=== PATIENT | male | born 1970 | race Caucasian/White ===

== ENCOUNTER 2017-02-05 09:49 | Outpatient (CLI) | payer OTHER ==
--- NOTE | 2017-02-05 13:25 | MRI Report ---
EXAM: RIGHT KNEE MRI WITHOUT CONTRAST EXAM DATE: 02/05/2017 10:01 AM. CLINICAL HISTORY: Pain in right knee. COMPARISON: None. TECHNIQUE: Multiplanar, multisequence T1-weighted and fluid-sensitive sequences of the knee without c ontrast. Other: None. FINDINGS: Bones and articular cartilage: Small bone islands at the tibial plateau and lateral femoral condyle. No acute fracture. Normal marrow signal. Grade 1-2 chondromalacia at the medial femoral condyle. Mult iple small partial-thickness fissures within articular cartilage at the median ridge and medial facet of the patella.. Medial Meniscus: Degenerative signal within the posterior horn. Focal fraying or tiny tear at the inf erior articular surface of the posterior horn (coronal image 18 and sagittal image 4). Lateral Meniscus: The lateral meniscus is intact. Cruciate Ligaments: The anterior and posterior cruciate ligaments are intact. Collateral Ligaments: The medial collateral and lateral collateral ligamentous structures are intact. Tendons: The quadriceps, patellar, semimembranosus, and popliteus tendons are unremarkable. Musculature: No edema or fatty atrophy. Other: No effusion. No popliteal cyst. No loose bodies. The medial and lateral retinacula are intact . The subcutaneous tissues and fat pads are unremarkable. IMPRESSION: 1. 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 Multiple small partial-thickness fissures within the articular cartilage at the median ridge and medial facet of patella. 2. Degenerative intrasubstance signal within the posterior horn medial meniscus. Focal fraying or a t iny tear at the inferior articular surface of the posterior horn medial meniscus. [facility] MUSCULOSKELETAL RADIOLOGY SECTION Referring Provider Line: [phone] SITE ID: [id number]
== END 2017-02-05 09:50 | disposition home or self-care (01) ==
LOC: DI 09:49
DX: M94.261 Chondromalacia, right knee (principal); M23.321 Other meniscus derangements, posterior horn of medial meniscus, right knee

== ENCOUNTER 2019-04-20 09:15 | Outpatient (CLI) | payer OTHER ==
--- NOTE | 2019-04-20 16:47 | MRI Report ---
Reason: LT ANKLE PAIN, SWELLING Procedure Date: 04/20/2019 Accession Number: [id number] / [id number] Procedure: MRI - Ankle LT W/O CPT Code: FULL RESULT: EXAM: LEFT ANKLE/HINDFOOT MRI WITHOUT CONTRAST. EXAM DATE: 04/20/2019 09:35 AM. CLINICAL HISTORY: Left ankle pain, swelling. COMPARISON: LEFT ANKLE 10/18/2006 2:00 PM images and report from 10/18/2006. TECHNIQUE: Multiplanar, multisequence T1-weighted and fluid-sensitive sequences of the ankle/hindfoot without contrast. Other: None. FINDINGS: Bones: No fractures or subluxations. No marrow edema. No bone lesions. Articular Cartilage: Unremarkable. Ligaments: The anterior and posterior tibiofibular, anterior and posterior talofibular, and calcaneofibular ligaments are intact. The deep and superficial deltoid and spring ligaments are intact. Anterior Tendons: A focal area of concern corresponds to a ganglion cyst which is surrounding the tibialis anterior tendon at the anterior aspect of the ankle. Extensor hallucis longus and extensor digitorum longus tendons appear normal. Medial Tendons: The tibialis posterior, flexor digitorum longus, and flexor hallucis longus tendons are unremarkable. Lateral Tendons: The peroneus brevis and longus are unremarkable. Achilles Tendon: The Achilles tendon is unremarkable, small amount of retrocalcaneal bursal fluid is present. Musculature: No edema or fatty atrophy. Other: No effusions. Tiny ganglion just seen in the sinus tarsi. Tarsal tunnel is unremarkable. No plantar fasciitis. Subcutaneous edema and swelling also seen medially. IMPRESSION: 1. The focal area of concern at the dorsal aspect of the foot/anterior aspect of the ankle corresponds to a ganglion cyst surrounding the otherwise normal-appearing tibialis anterior tendon. Series 701 image 27. Other tendons of extension and plantar flexion appear unremarkable. Small amount of fluid in the retrocalcaneal bursa. 2. Some edema in the medial subcutaneous soft tissues, of doubtful consequence. 3. Tiny ganglion seen in the sinus tarsi. RADIA
== END 2019-04-20 09:16 | disposition home or self-care (01) ==
LOC: DI 09:15
PROVIDERS: ATTEND Family Medicine
DX: M67.472 Ganglion, left ankle and foot (principal)

== ENCOUNTER 2020-10-17 08:02 | Outpatient (CLI) | payer OTHER | END 2020-10-17 08:03 | disposition home or self-care (01) | LOC: DI 08:02 | PROVIDERS: ATTEND Internal Medicine Cardiovascular Disease | DX: I48.91 Unspecified atrial fibrillation (principal); I10 Essential (primary) hypertension | CPT/HCPCS: 93306 ==

== ENCOUNTER 2020-10-31 07:51 | Outpatient (CLI) | payer OTHER ==
--- NOTE | 2020-10-31 09:39 | CARDIAC PROCEDURE NOTE ---
DATE OF SERVICE: 10/31/2020 Physician: Mary Westbrook MD, [facility] INDICATION: Atrial fibrillation, hypertension, exertional shortness of breath. CARDIAC RISK FACTORS: Male gender, obesity, hypertension. PROCEDURE: After signing informed consent, the patient underwent a Cheo- protocol treadmill stress test. No cardiac imaging was ordered with this test. RESTING HEART RATE: 61. PEAK HEART RATE: 156 (90% predicted maximum heart rate for age). RESTING BLOOD PRESSURE: 139/95 (despite taking his usual Losartan and Carvedilol doses on schedule). PEAK BLOOD PRESSURE: 202/71. The patient exercised for 8 minutes 16 seconds on a Cheo-protocol treadmill stress test. The patient reported no chest pain. He had moderate to severe shortness of breath at peak. Oxygen saturation was 94-98% on room air throughout the test. The patient rated his perceived exertion at 18/20 on the Prakash scale at peak. RESTING EKG: Normal sinus rhythm, within normal limits. EKG AT PEAK: Normal sinus rhythm, U waves are present, 2 runs of ventricular bigeminy seen, and a ventricular couplet is seen, no ST segment or T-wave changes develop to suggest ischemia. SUMMARY: 1. Normal resting EKG. 2. No ischemic changes by EKG criteria. 3. Ventricular ectopy occurs at peak exercise. 4. Excessive blood pressure response to exercise, suggesting suboptimal exercise tolerance. IMPRESSION: 1. Borderline abnormal stress test due to increased ventricular ectopy at peak. cc: Ade Quesada MD ([facility]) Marty Ojeda MD TD: 10/31/2020 09:37 [facility]
== END 2020-10-31 07:52 | disposition home or self-care (01) ==
LOC: DI 07:51
PROVIDERS: ATTEND Internal Medicine Cardiovascular Disease
DX: I48.91 Unspecified atrial fibrillation (principal); I10 Essential (primary) hypertension
CPT/HCPCS: 93016; 93018

== ENCOUNTER 2021-04-09 11:17 | Emergency (ER) | payer OTHER ==
[2021-04-09] MEDS ORDERED: diltiaZEM INJ 5 MG/ML VIAL IVP STA ×4 (11:39→13:13)
--- NOTE | 2021-04-09 11:39 | ED Physician Documentation ---
PD HPI CHEST PAIN - Stated complaint Stated Complaint: FAST IRREG HB - Chief complaint Chief Complaint: Cardiac - History obtained from History obtained from: Patient - Additional information Additional information: 50-year-old gentleman with history of atrial fibrillation has not had A. fib since an ablation approximately 6 years ago. Today has felt rapid irregular heartbeat with chest pressure starting at 6 AM with breathlessness similar to prior episodes of atrial fibrillation. He is not currently anticoagulated. No other heart problems. Review of Systems Ten Systems: 10 systems reviewed and negative Constitutional: reports: Fatigue. denies: Fever, Chills Cardiac: reports: Palpitations Respiratory: reports: Dyspnea. denies: Cough GI: denies: Abdominal Pain PD PAST MEDICAL HISTORY - Past Medical History Cardiovascular: Atrial fibrillation - Past Surgical History Past Surgical History: Yes - Present Medications Home Medications: Ambulatory Orders Medication Instructions Recorded Confirmed Bupropion HCl [Bupropion Xl] 300 mg PO DAILY 05/12/14 04/09/21 carvediloL [Coreg] 6.25 mg PO BID 05/12/14 04/09/21 Losartan [Cozaar] 50 mg PO BID 04/09/21 04/09/21 Magnesium Oxide 420 mg PO DAILY 04/09/21 04/09/21 Rivaroxaban [Xarelto] 20 mg PO DAILY #30 tablet 04/09/21 Sertraline HCl 50 mg PO DAILY 04/09/21 04/09/21 - Allergies Allergies/Adverse Reactions: Allergies Allergy/AdvReac Type Severity Reaction Status Date / Time brompheniramine maleate * Allergy Unknown Verified 04/09/21 11:27 [From Drixoral] dexbrompheniramine maleate * Allergy Unknown Verified 04/09/21 11:27 [From Drixoral] dofetilide Allergy Unknown Verified 04/09/21 11:27 pseudoephedrine HCl * Allergy Unknown Verified 04/09/21 11:27 [From Drixoral] pseudoephedrine sulfate * Allergy Unknown Verified 04/09/21 11:27 [From Drixoral] - Social History Does the pt smoke?: No Smoking Status: Never smoker Does the pt drink ETOH?: Yes Does the pt have substance abuse?: No PD ED PE NORMAL - Vitals Vital signs reviewed: Yes - General General: Alert and oriented X 3, No acute distress - HEENT HEENT: PERRL, EOMI - Neck Neck: Supple, no meningeal sign, No bony TTP - Cardiac Cardiac: Other (Rapid and irregular without murmur) - Respiratory Respiratory: No respiratory distress, Clear bilaterally - Abdomen Abdomen: Normal bowel sounds, Soft, Non tender - Back Back: No CVA TTP, No spinal TTP - Derm Derm: Normal color, Warm and dry - Extremities Extremities: No edema, No calf tenderness / cord - Neuro Neuro: Alert and oriented X 3, Normal speech Results - Vitals Vitals: Vital Signs - 24 hr 04/09/21 04/09/21 04/09/21 11:23 11:57 12:27 Temperature 36.0 C L Heart Rate 164 H 143 H 95 Respiratory 20 15 Rate Blood Pressure 143/103 H 126/79 104/81 H O2 Saturation 100 98 98 04/09/21 04/09/21 04/09/21 12:30 13:00 13:30 Temperature Heart Rate 104 H 137 H 65 Respiratory 17 15 23 Rate Blood Pressure 103/88 H 112/84 H 100/60 O2 Saturation 97 98 99 04/09/21 04/09/21 04/09/21 13:40 13:45 14:00 Temperature Heart Rate 35 L 61 60 Respiratory 22 17 16 Rate Blood Pressure 65/40 L 98/82 H 104/70 O2 Saturation 98 97 99 04/09/21 04/09/21 14:30 15:00 Temperature 37.0 C Heart Rate 59 L 61 Respiratory 11 L 16 Rate Blood Pressure 106/72 113/79 O2 Saturation 96 97 Oxygen O2 Source Room air - EKG (time done) 1121 Rate: Rate (enter#) (165) Rhythm: Atrial fibrillation [place]: Normal Ischemia: Non specific changes Computer interpretation: Agree with computer 1336 Rate: Rate (enter#) (44) Rhythm: Sinus bradycardia [place]: Normal Intervals: Normal DE QRS: Normal Ischemia: Non specific changes - Labs Labs: Laboratory Tests 04/09/21 04/09/21 11:41 11:41 WBC 10.9 H RBC 5.28 Hgb 17.6 Hct 50.6 MCV 95.8 H MCH 33.3 H MCHC 34.8 RDW 13.0 Plt Count 269 MPV 9.7 Neut # (Auto) 8.1 H Lymph # (Auto) 1.7 [place] # (Auto) 0.9 Eos # (Auto) 0.1 Baso # (Auto) 0.0 Absolute Nucleated RBC 0.00 Nucleated RBC % 0.0 Sodium 138 Potassium 5.0 Chloride 98 L Carbon Dioxide 25 Anion Gap 15.0 H BUN 13 Creatinine 1.2 Estimated GFR (MDRD) 64 L Glucose 101 H Calcium 9.4 Magnesium 1.9 PD MEDICAL DECISION MAKING - ED course ED course: 50-year-old gentleman with history of A. fib but not since an ablation a few years ago presents with rapid A. fib symptomatic since early this morning. H eart rates quite elevated. Heart rate was controlled with divided doses of diltiazem and also given some magnesium for borderline magnesium serum levels and started on procainamide drip. He did convert in the department but a few minutes after converting became quite bradycardic which was also symptomatic, and this responded to atropine. After being bradycardic and getting the atropine he was observed for a prolonged period of time without recurrence of symptoms of bradycardia or tachydysrhythmia. Departure - Departure Disposition: 01 Home, Self Care Clinical Impression: Atrial fibrillation Qualifiers: Atrial fibrillation type: paroxysmal Qualified Code(s): I48.0 - Paroxysmal atrial fibrillation Condition: Stable Instructions: ED Afib Prescriptions: Rivaroxaban [Xarelto] 20 mg PO DAILY #30 tablet Comments: Followup with Dr Posey, call tomorrow for appointment. Xarelto prescription sent electronically to [facility] in [place]. Recommend picking it up and starting at night.
[2021-04-09 11:47] LABS: BASOPHILS % (AUTO) 0.4 %; EOSINOPHILS # (AUTO) 0.1 10^3/uL (0.0-0.7); EOSINOPHILS % (AUTO) 0.8 %; HCT - HEMATOCRIT 50.6 % (42.0-52.0); HGB - HEMOGLOBIN 17.6 g/dL (14.0-18.0); LYMPHOCYTES # (AUTO) 1.7 10^3/uL (1.5-3.5); LYMPHOCYTES % (AUTO) 15.5 %; MEAN CORPUSCULAR HEMOGLOBIN 33.3 pg (27.0-31.0); MEAN CORPUSCULAR HGB CONC 34.8 g/dL (32.0-36.0); MEAN CORPUSCULAR VOLUME 95.8 fL (80.0-94.0); MEAN PLATELET VOLUME 9.7 fL (7.4-11.4); MONOCYTES # (AUTO) 0.9 10^3/uL (0.0-1.0); MONOCYTES % (AUTO) 7.8 %; NEUTROPHILS # (AUTO) 8.1 10^3/uL (1.5-6.6); NEUTROPHILS % (AUTO) 74.8 %; PLT - PLATELET COUNT 269 10^3/uL (130-450); RED BLOOD COUNT 5.28 10^6/uL (4.70-6.10); WHITE BLOOD COUNT 10.9 x10^3/uL (4.8-10.8)
[2021-04-09] MEDS ORDERED: PROCAINAMIDE 1,000 MG in SODIUM CHLORIDE 0.9% 240 ML IV STA (11:56)
[2021-04-09 11:57] LABS: CALCIUM 9.4 mg/dL (8.5-10.3); CREATININE 1.2 mg/dL (0.6-1.2); MAGNESIUM 1.9 mg/dL (1.7-2.8)
[2021-04-09] MEDS ORDERED: MAGNESIUM SULFATE 2 GRAM 2 GM/50 ML BAG IV ONE (12:05)
[2021-04-09] MEDS ORDERED: SODIUM CHLORIDE 0.9% 500 ML IV STA (12:09)
[2021-04-09] MEDS ORDERED: ATROPINE ABBOJECT 0.5 MG/5 ML SYRINGE IVP STA (13:39)
[2021-04-09] MEDS ORDERED: ATROPINE ABBOJECT 1 MG/10 ML SYRINGE IVP STA (13:41)
[2021-04-09] MEDS ORDERED: ATROPINE ABBOJECT 1 MG/10 ML SYRINGE IVP ONE (13:44)
[2021-04-09 15:29] VITALS: BP 112/78
== END 2021-04-09 15:26 | disposition home or self-care (01) ==
LOC: ED 11:17
DX: I48.0 Paroxysmal atrial fibrillation (principal); R00.1 Bradycardia, unspecified
CPT/HCPCS: 36415; 80048; 83735; 85025; 93005; 96365; 96368; 96375; 96376; 99283; 99285; J2690

== ENCOUNTER 2022-05-04 16:43 | Emergency (ER) | payer OTHER ==
[2022-05-04] MEDS ORDERED: diltiaZEM INJ 5 MG/ML VIAL IVP STA ×2 (17:24→18:59)
[2022-05-04 17:28] LABS: BASOPHILS % (AUTO) 0.4 %; EOSINOPHILS # (AUTO) 0.1 10^3/uL (0.0-0.7); EOSINOPHILS % (AUTO) 0.9 %; LYMPHOCYTES # (AUTO) 1.9 10^3/uL (1.5-3.5); LYMPHOCYTES % (AUTO) 20.3 %; MEAN CORPUSCULAR HEMOGLOBIN 34.3 pg (27.0-31.0); MEAN CORPUSCULAR HGB CONC 35.6 g/dL (32.0-36.0); MEAN CORPUSCULAR VOLUME 96.6 fL (80.0-94.0); MEAN PLATELET VOLUME 9.8 fL (7.4-11.4); MONOCYTES # (AUTO) 0.6 10^3/uL (0.0-1.0); MONOCYTES % (AUTO) 6.6 %; NEUTROPHILS # (AUTO) 6.8 10^3/uL (1.5-6.6); NEUTROPHILS % (AUTO) 71.2 %; PLT - PLATELET COUNT 341 10^3/uL (130-450); RED BLOOD COUNT 4.66 10^6/uL (4.70-6.10); WHITE BLOOD COUNT 9.5 x10^3/uL (4.8-10.8)
--- NOTE | 2022-05-04 17:35 | ED Physician Documentation ---
History of Present Illness - Stated complaint Stated Complaint: IRREGULAR HB - Chief complaint Chief Complaint: Cardiac - Additonal information Additional information: Very pleasant 51-year-old male presents the emergency department for evaluation of A. ly with RVR. This gentleman has a longstanding history of atrial fibrillation about 4 hours prior to arrival he felt his heart rate began to race. His heart monitor on the watch told him he had a heart rate in the 140s. This gentleman has a history of ablations the most recent 1 in October 2021. He is followed by Dr. Cutler and benzol still operator through [facility]. The patient recently had his medications changed. He was transitioned from sotalol to Metroprolol. Currently taking 25 mg twice daily. He also had his flecainide increased to 150 mg twice daily. Patient is anticoagulated on Xarelto. He has some dyspnea. Some mild chest pain. Review of Systems Constitutional: reports: Reviewed and negative Ears: reports: Reviewed and negative Throat: reports: Reviewed and negative Cardiac: reports: Chest pain / pressure, Palpitations, Pedal edema Respiratory: reports: Dyspnea GI: reports: Reviewed and negative : reports: Reviewed and negative Skin: reports: Reviewed and negative Musculoskeletal: reports: Reviewed and negative PD PAST MEDICAL HISTORY - Past Medical History Cardiovascular: Atrial fibrillation - Past Surgical History Past Surgical History: Yes - Present Medications Home Medications: Ambulatory Orders Medication Instructions Recorded Confirmed Bupropion HCl [Bupropion Xl] 300 mg PO DAILY 05/12/14 05/04/22 Losartan [Cozaar] 50 mg PO BID 04/09/21 05/04/22 Rivaroxaban [Xarelto] 20 mg PO DAILY #30 tablet 04/09/21 05/04/22 Flecainide Acetate 150 mg PO BID 05/04/22 05/04/22 Metoprolol Succinate [Toprol Xl] 25 mg PO BID 05/04/22 05/04/22 Prazosin HCl [Minipress] 2 mg PO DAILY 05/04/22 05/04/22 dilTIAZem HCL [Diltiazem 24Hr ER 240 mg PO DAILY 30 Days #30 cap 05/04/22 (Xr)] - Allergies Allergies/Adverse Reactions: Allergies Allergy/AdvReac Type Severity Reaction Status Date / Time brompheniramine maleate * Allergy Unknown Verified 05/04/22 16:57 [From Drixoral] dexbrompheniramine maleate * Allergy Unknown Verified 05/04/22 16:57 [From Drixoral] dofetilide Allergy Unknown Verified 05/04/22 16:57 pseudoephedrine HCl * Allergy Unknown Verified 05/04/22 16:57 [From Drixoral] pseudoephedrine sulfate * Allergy Unknown Verified 05/04/22 16:57 [From Drixoral] - Social History Does the pt smoke?: No Smoking Status: Never smoker Does the pt drink ETOH?: Yes Does the pt have substance abuse?: No PD ED PE NORMAL - General General: Alert and oriented X 3, No acute distress - HEENT HEENT: Atraumatic, Moist mucous membranes - Neck Neck: Supple, no meningeal sign, No adenopathy - Cardiac Cardiac: No murmur, Strong equal pulses. No: RRR (Irregularly irregular. A. fib with RVR heart rate in the 140s on the monitor) - Respiratory Respiratory: No respiratory distress, Clear bilaterally - Abdomen Abdomen: Normal bowel sounds, Soft - Derm Derm: Normal color, Warm and dry, No rash - Extremities Extremities: No deformity, No tenderness to palpate, Normal ROM s pain - Neuro Neuro: Alert and oriented X 3, second time worker 2-12 intact Eye Opening: Spontaneous Motor: Obeys Commands Verbal: Oriented GCS Score: 15 Results - Vitals Vitals: Vital Signs - 24 hr 05/04/22 05/04/22 05/04/22 16:53 17:27 17:45 Temperature 36.3 C L Heart Rate 139 H 136 H 115 H Respiratory 14 18 20 Rate Blood Pressure 146/106 H 144/116 H 129/89 H O2 Saturation 98 97 95 05/04/22 05/04/22 05/04/22 18:00 18:30 19:00 Temperature Heart Rate 110 H 106 H 96 Respiratory 12 12 20 Rate Blood Pressure 138/99 H 118/93 H 126/91 H O2 Saturation 95 96 96 05/04/22 05/04/22 19:30 20:00 Temperature Heart Rate 108 H 105 H Respiratory 12 14 Rate Blood Pressure 132/96 H 133/90 H O2 Saturation 97 94 Oxygen O2 Source Room air - EKG (time done) 1651 Rate: Rate (enter#) (139) Rhythm: Atrial fibrillation Intervals: Prolonged QT QRS: Low voltage Ischemia: Non specific changes Compare to prior EKG: Unchanged from prior EKG Computer interpretation: Agree with computer - Labs Labs: Laboratory Tests 05/04/22 05/04/22 05/04/22 17:20 17:20 17:20 WBC 9.5 RBC 4.66 L Hgb 16.0 Hct 45.0 MCV 96.6 H MCH 34.3 H MCHC 35.6 RDW 14.0 Plt Count 341 MPV 9.8 Neut # (Auto) 6.8 H Lymph # (Auto) 1.9 [place] # (Auto) 0.6 Eos # (Auto) 0.1 Baso # (Auto) 0.0 Absolute Nucleated RBC 0.00 Nucleated RBC % 0.0 Sodium 136 Potassium 4.3 Chloride 100 L Carbon Dioxide 25 Anion Gap 11.0 BUN 9 Creatinine 1.0 Estimated GFR (MDRD) 79 L Glucose 95 Calcium 9.2 Total Bilirubin 1.0 AST 45 H ALT 54 Alkaline Phosphatase 55 Troponin I High Sens 6.4 Total Protein 6.6 L Albumin 4.0 Globulin 2.6 Albumin/Globulin Ratio 1.5 Lipase 36 - Rads (name of study) cxr Radiology: Final report received (No acute cardiopulmonary abnormality) PD MEDICAL DECISION MAKING - ED course Complexity details: reviewed results, re-evaluated patient, considered diff erential, d/w patient, d/w managed security sales consultant (Dr. Tucker [facility]) ED course: 51-year-old male presents emergency department for evaluation of A. fib with RVR. He has a history of A. fib/a flutter. He has had 2 ablations in the past the last was in October 2021. He is followed by [facility] cardiology in [place]. He reports that about 2 weeks ago he was transition from sotalol to Metroprolol. Today he developed A. fib with rapid heart rate of 140. He had some mild dyspnea but no hypotension. On presentation he was administered 10 mg of diltiazem which promptly converted him to sinus rhythm though he remained mildly tacky about 108. Because he recently been transitioned to Metoprolol I then administered him an oral dose of 50 mg. However after about an hour and a half in the emergency department he had converted back to atrial fibrillation with a rate of 130. He was then administered an additional 10 mg of diltiazem which dropped his heart rate to about 110. I discussed this case with Dr. Tucker on-call for cardiology at [facility]. He feels that the patient should now be transition to diltiazem. He would make the initial recommendation for 240 mg daily. We would stop the Metroprolol. He will follow closely with his benzol still operator. Emergent return precautions were discussed for worsening symptoms. - Critical Care Time(min): 15 Time Includes: Direct patient care, Review records, Medical consult, See progress note (15 minutes of critical care time dedicated to management of A. fib with RVR frequent medication administration reassessment as well as consult with a benzol still operator.) Data interpretation: Labs, Prior EKG Departure - Departure Disposition: Home, Self Care Clinical Impression: Atrial fibrillation with RVR Condition: Stable Record reviewed to determine appropriate education?: Yes Prescriptions: dilTIAZem HCL [Diltiazem 24Hr ER (Xr)] 240 mg PO DAILY 30 Days #30 cap Comments: Roger you are seen today in the emergency department because you developed atrial fibrillation with rapid heart rate. Here in the emergency department we gave you a form of medication called a calcium channel ras. This converted you from Atrial fibrillation to a low sinus tachycardia. I did discuss your case with Dr. Tucker, the Chairman And Ceo on-call at [facility]. Because we were able to convert you from atrial fibrillation to a sinus rhythm using Diltiazem he would like you to stop taking the Metroprolol and begin taking 240 mg of diltiazem daily. This dose may need to be increased over time. Please call your cardiology office tomorrow to discuss this ED visit and to arrange follow-up. Return immediately to the ER if you have a return of your atrial fib with rapid heart rate. Discharge Date/Time: 05/04/22 20:22
[2022-05-04 17:40] LABS: ALBUMIN/GLOBULIN RATIO 1.5 (1.0-2.2); CALCIUM 9.2 mg/dL (8.5-10.3); POTASSIUM 4.3 mmol/L (3.5-5.0); TOTAL PROTEIN 6.6 g/dL (6.7-8.2)
--- NOTE | 2022-05-04 17:43 | XRAY Report ---
PROCEDURE: Chest 1 View X-Ray INDICATIONS: Chest pain TECHNIQUE: One view of the chest was acquired. COMPARISON: None FINDINGS: Surgical changes and devices: None. Lungs and pleura: No pleural effusions or pneumothorax. Lungs are clear. Mediastinum: Mediastinal contours appear normal. Heart size is normal. Bones and chest wall: No suspicious bony lesions. Overlying soft tissues appear unremarkable. IMPRESSION: No acute radiographic abnormality. Reviewed by: Joe Easley MD on 05/04/2022 5:41 PM PDT Approved by: Joe Easley MD on 05/04/2022 5:41 PM PDT Station ID: [id number]
[2022-05-04] MEDS ORDERED: METOPROLOL TARTRATE 50 MG TABLET PO STA (17:47)
[2022-05-04] MEDS ORDERED: diltiaZEM 30 MG TABLET PO STA (19:24)
[2022-05-04 20:03] VITALS: BP 133/90
== END 2022-05-04 20:22 | disposition home or self-care (01) ==
LOC: ED 16:43
DX: I48.91 Unspecified atrial fibrillation (principal); Z79.01 Long term (current) use of anticoagulants
CPT/HCPCS: 36415; 71045; 80053; 83690; 84484; 85025; 93005; 96374; 96376; 99283; 99284; A9270

== ENCOUNTER 2023-02-04 05:59 | Emergency (ER) | payer OTHER ==
[2023-02-04] MEDS ORDERED: diltiaZEM INJ 5 MG/ML VIAL IVP STA (06:30)
[2023-02-04 06:41] LABS: BASOPHILS % (AUTO) 0.4 %; EOSINOPHILS % (AUTO) 0.4 %; HCT - HEMATOCRIT 43.2 % (42.0-52.0); HGB - HEMOGLOBIN 14.6 g/dL (14.0-18.0); LYMPHOCYTES % (AUTO) 13.2 %; MEAN CORPUSCULAR HEMOGLOBIN 33.4 pg (27.0-31.0); MEAN CORPUSCULAR HGB CONC 33.8 g/dL (32.0-36.0); MEAN CORPUSCULAR VOLUME 98.9 fL (80.0-94.0); MEAN PLATELET VOLUME 10.4 fL (7.4-11.4); MONOCYTES # (AUTO) 0.7 10^3/uL (0.0-1.0); NEUTROPHILS # (AUTO) 5.7 10^3/uL (1.5-6.6); NEUTROPHILS % (AUTO) 76.7 %; PLT - PLATELET COUNT 195 10^3/uL (130-450); RED BLOOD COUNT 4.37 10^6/uL (4.70-6.10); RED CELL DISTRIBUTION WIDTH 13.6 % (12.0-15.0); WHITE BLOOD COUNT 7.4 x10^3/uL (4.8-10.8)
[2023-02-04 06:54] LABS: ALBUMIN 4.3 g/dL (3.2-5.5); ALBUMIN/GLOBULIN RATIO 1.6 (1.0-2.2); BILIRUBIN,TOTAL 2.4 mg/dL (0.2-1.0); CALCIUM 9.1 mg/dL (8.5-10.3); CREATININE 1.3 mg/dL (0.6-1.2); POTASSIUM 3.7 mmol/L (3.5-5.0)
[2023-02-04] MEDS ORDERED: SODIUM CHLORIDE 0.9% 1,000 ML IV STA (07:25)
--- NOTE | 2023-02-04 07:35 | ED Physician Documentation ---
PD HPI CHEST PAIN - Stated complaint Stated Complaint: IRREGULAR HEARTBEAT - Chief complaint Chief Complaint: Cardiac - History obtained from History obtained from: Patient - Additional information Additional information: Patient is a 52-year-old male with a history of atrial fibrillation on Xarelto presenting for evaluation of feeling palpitations since yesterday around noon while he was at work. Patient states he was just walking and a quarter when his symptoms started and denies that he was exerting himself. He states that more often than not he feels that he is in A-fib and he says that over the past 3 weeks his heart rates have been more elevated. He currently is on 50 mg of amiodarone daily and also takes metoprolol as needed for heart rates above 110. Yesterday he took 2 doses of his metoprolol as directed which did not help. He thought he might need to just take more time so he went to sleep but reported still having some symptoms this morning so that has thus presented to the emergency department. He reports feeling some chest pressure since yesterday which has improved. He feels lightheaded at times when his heart rates are elevated.He was scheduled to have a gastric bypass in early December but that was canceled due to his heart rate being too low As he was on the longer acting metoprolol. He has since been changed to short acting. His tank maker wood and EP is through [facility] in [place]. EP is Dr. Amanda. Sheet Metal Installer is Dr. Atkinson. He has had follow-up with his EP and was on a monitor for several weeks and has an upcoming appointment on February 09.He has already received a dose of IV diltiazem and reports feeling better. He has had 2 prior ablations for his atrial fibrillation. Review of Systems Constitutional: denies: Fever Cardiac: reports: Chest pain / pressure Respiratory: denies: Dyspnea, Cough GI: denies: Abdominal Pain, Vomiting, Diarrhea : denies: Dysuria Musculoskeletal: denies: Extremity swelling Neurologic: denies: Headache PD PAST MEDICAL HISTORY - Past Medical History Past Medical History: Yes Cardiovascular: Atrial fibrillation - Past Surgical History Past Surgical History: Yes - Present Medications Home Medications: Ambulatory Orders Medication Instructions Recorded Confirmed buPROPion HCL [Bupropion Xl] 300 mg PO DAILY 05/12/14 02/04/23 Losartan [Cozaar] 50 mg PO BID 04/09/21 02/04/23 Rivaroxaban [Xarelto] 20 mg PO DAILY #30 tablet 04/09/21 02/04/23 Flecainide Acetate 150 mg PO BID 05/04/22 02/04/23 Metoprolol Succinate [Toprol Xl] 25 mg PO BID 05/04/22 02/04/23 Prazosin HCl [Minipress] 2 mg PO DAILY 05/04/22 02/04/23 dilTIAZem HCL [Diltiazem 24Hr ER 240 mg PO DAILY 30 Days #30 cap 05/04/22 02/04/23 (Xr)] - Allergies Allergies/Adverse Reactions: Allergies Allergy/AdvReac Type Severity Reaction Status Date / Time brompheniramine maleate * Allergy Unknown Verified 02/04/23 06:31 [From Drixoral] dexbrompheniramine maleate * Allergy Unknown Verified 02/04/23 06:31 [From Drixoral] dofetilide Allergy Unknown Verified 02/04/23 06:31 pseudoephedrine HCl * Allergy Unknown Verified 02/04/23 06:31 [From Drixoral] pseudoephedrine sulfate * Allergy Unknown Verified 02/04/23 06:31 [From Drixoral] - Social History Does the pt smoke?: No Smoking Status: Never smoker Does the pt drink ETOH?: Yes Does the pt have substance abuse?: No - POLST Patient has POLST: No PD ED PE NORMAL - General General: Alert and oriented X 3, No acute distress, Well developed/nourished - HEENT HEENT: Atraumatic - Neck Neck: Supple, no meningeal sign - Cardiac Cardiac: No murmur, Strong equal pulses, Other (Irregularly irregular) - Respiratory Respiratory: No respiratory distress, Clear bilaterally - Abdomen Abdomen: Normal bowel sounds, Soft, Non tender, Non distended - Derm Derm: Warm and dry - Extremities Extremities: No edema, No calf tenderness / cord - Neuro Neuro: Normal speech Results - Vitals Vitals: Vital Signs - 24 hr 02/04/23 02/04/23 02/04/23 06:03 06:05 06:39 Temperature 37.0 C Heart Rate 128 H 115 H Respiratory 12 14 Rate Blood Pressure 155/107 H 163/118 H Blood Pressure 155/107 H [Left] O2 Saturation 99 96 02/04/23 02/04/23 02/04/23 06:50 07:23 08:59 Temperature Heart Rate 98 105 H 48 L Respiratory 18 26 H 17 Rate Blood Pressure 170/91 H 149/108 H 131/107 H Blood Pressure [Left] O2 Saturation 96 98 99 02/04/23 02/04/23 02/04/23 09:40 10:19 10:48 Temperature Heart Rate 47 L 45 L 44 L Respiratory 15 13 12 Rate Blood Pressure 137/87 H 144/92 H 152/104 H Blood Pressure [Left] O2 Saturation 97 96 96 02/04/23 12:06 Temperature Heart Rate 48 L Respiratory 13 Rate Blood Pressure 135/64 H Blood Pressure [Left] O2 Saturation 99 Oxygen O2 Source Room air - EKG (time done) 0614 EKG releavant findings:: EKG personally interpreted by author of this note. Relevant findings are: Rate 110,Atrial fibrillation, no STEMI Rate: Rate (enter#) (110) Rhythm: Atrial fibrillation Intervals: No: Prolonged QT Ischemia: No: ST elevation c/w ischemia 0852 EKG releavant findings:: EKG personally interpreted by author of this note. Relevant findings are: Rate 46, sinus bradycardia, no STEMI, rhythm and rate have changed from prior EKG taken this morning Rate: Rate (enter#) (46) Rhythm: Sinus bradycardia Intervals: No: Prolonged QT Ischemia: No: ST elevation c/w ischemia Compare to prior EKG: Changed from prior EKG - Labs Labs: Laboratory Tests 02/04/23 02/04/23 02/04/23 06:23 06:23 06:23 WBC 7.4 RBC 4.37 L Hgb 14.6 Hct 43.2 MCV 98.9 H MCH 33.4 H MCHC 33.8 RDW 13.6 Plt Count 195 MPV 10.4 Neut # (Auto) 5.7 Lymph # (Auto) 1.0 L [place] # (Auto) 0.7 Eos # (Auto) 0.0 Baso # (Auto) 0.0 Absolute Nucleated RBC 0.00 Nucleated RBC % 0.0 Sodium 139 Potassium 3.7 Chloride 101 Carbon Dioxide 26 Anion Gap 12.0 BUN 17 Creatinine 1.3 H Estimated GFR (MDRD) 58 L Glucose 116 H Calcium 9.1 Total Bilirubin 2.4 H AST 60 H ALT 81 H Alkaline Phosphatase 44 Troponin I High Sens 4.1 Total Protein 7.0 Albumin 4.3 Globulin 2.7 Albumin/Globulin Ratio 1.6 Lipase 46 TSH 02/04/23 06:23 WBC RBC Hgb Hct MCV MCH MCHC RDW Plt Count MPV Neut # (Auto) Lymph # (Auto) [place] # (Auto) Eos # (Auto) Baso # (Auto) Absolute Nucleated RBC Nucleated RBC % Sodium Potassium Chloride Carbon Dioxide Anion Gap BUN Creatinine Estimated GFR (MDRD) Glucose Calcium Total Bilirubin AST ALT Alkaline Phosphatase Troponin I High Sens Total Protein Albumin Globulin Albumin/Globulin Ratio Lipase TSH 4.44 PD Medical Decision Making - ED course Complexity details: reviewed results, re-evaluated patient, d/w patient, d/w banking consultant ED course: 08 - Discussed with Dr. Tucker, on-call cardiology for [facility] in [place]. He has reviewed the patient's chart.He does not feel that cardioversion would be helpful at this time as the patient will likely just go back into atrial fibrillation given his history. He feels that this time the patient just needs better rate control and is recommending having the patient take his metoprolol as twice a day dosing schedule to versus PRN. 0903 - D/W Dr. Cain, On-call cardiology for [facility] in [place]. She has reviewed the chart we also discussed his care here this morning including recommendations from Dr. Tucker. She recommends that patient take 12-1/2 mg of metoprolol twice daily but would not recommend another dose until this evening. She would also recommend that the patient to check his heart rate before taking the medication and if it is below 50 then holding the medication. She also recommends holding on atropine at this time as this may then send his heart rates back up and cause him to go back into atrial fibrillation. She states that as he is not hypotensive or Appearing unstable she would hold off on atropine. 1123 - Patient is feeling much better. is at the bedside. Again discussed plan for reduced dose of metoprolol and close follow-up with cardiology. Patient is a 52-year-old male with a history of atrial fibrillation presenting for evaluation of palpitations. He was found to be in A-fib with RVR. He was given a dose of IV Cardizem prior to my evaluation. This has improved his rate and his symptoms.Labs including CBC, chemistries, troponin and TSH were obtained and reviewed without any significant findings. Patient reports chest pressure constantly since yesterday.ACS appears unlikely in the setting of a negative troponin given the duration of his symptoms.Doubt PE - He is anticoagulated and does not feel short of air. Discussed the case with his tank maker wood who recommends having him take metoprolol as a scheduled dose versus as needed that he had been using.Patient was given a dose of metoprolol and was monitored. During that time he converted into a sinus rhythm but was bradycardic with heart rate in the 40s. Repeat EKG was obtained. Patient was given continued IV fluids and was monitored and remained stable. He did not appear to be symptomatic. We again consulted with cardiology and have decided to lower the dose of his metoprolol. He has an appointment on February 09 with his EP. Patient is counseled on treatment plan as well as concerning symptoms to return for. Departure - Departure Disposition: Home, Self Care Clinical Impression: Atrial fibrillation, Abnormal liver enzymes Condition: Stable Instructions: ED Afib Comments: You were evaluated and treated for atrial fibrillation today. You have read and received medication and IV fluids and you are now back into a regular rhythm. I have discussed your case with The tank maker wood at [facility] in [place]. Recommendations are as follows. Please continue with taking your metoprolol but reduce the dose to half a tablet (12.5mg) twice a day. Your next dose will be this evening. Before you take any doses of metoprolol please make sure You check your heart rate. If it is 60 or lower then do not take the metoprolol. Please keep your appointment for close follow-up next Wednesday. In the meanwhile if you develop any new or worsening symptoms please return to the emergency department. I would also recommend close follow-up with your primary care provider. Some of your liver markers today were slightly elevated. I was able to review records from Your ER visit at [facility] on January 19 and some of your liver markers were also elevated at that time. Return to the emergency department if you develop any abdominal symptoms Such as pain, nausea, vomiting, jaundiced appearance. Forms: Activity restrictions Discharge Date/Time: 02/04/23 12:25
--- NOTE | 2023-02-04 07:53 | XRAY Report ---
PROCEDURE: Chest 1 View X-Ray INDICATIONS: chest pain TECHNIQUE: One view of the chest was acquired. COMPARISON: None. FINDINGS: Surgical changes and devices: None. Lungs and pleura: No pleural effusions or pneumothorax. Lungs are clear. Mediastinum: Mediastinal contours appear normal. Heart size is normal. Bones and chest wall: No suspicious bony lesions. Overlying soft tissues appear unremarkable. IMPRESSION: No acute cardiopulmonary process. Findings are concordant with preliminary interpretation provided by [facility]. Reviewed by: Marco Govea MD on 02/04/2023 7:51 AM PDT Approved by: Marco Govea MD on 02/04/2023 7:51 AM PDT Station ID: [id number]
[2023-02-04] MEDS ORDERED: METOPROLOL TARTRATE 50 MG TABLET PO STA (08:06)
[2023-02-04 12:10] VITALS: BP 135/64
== END 2023-02-04 12:25 | disposition home or self-care (01) ==
LOC: ED 05:59
DX: I48.91 Unspecified atrial fibrillation (principal); R74.01 Elevation of levels of liver transaminase levels; Z79.01 Long term (current) use of anticoagulants; Z79.899 Other long term (current) drug therapy
CPT/HCPCS: 36415; 71045; 80053; 83690; 84443; 84484; 85025; 93005; 96374; 99284; A9270

== ENCOUNTER 2024-01-19 11:32 | Emergency (ER) | payer OTHER ==
--- NOTE | 2024-01-19 12:30 | ED Physician Documentation ---
History of Present Illness - Stated complaint Stated Complaint: FOREHEAD LAC - Chief complaint Chief Complaint: Laceration - History obtained from History obtained from: Patient, Family - History of Present Illness Timing: Today Pain level max: 6 Pain level now: 5 - Additonal information Additional information: 53-year-old male states that he is approximately 6 months status post a gastric sleeve surgery. He states that since the surgery he has lost a large amount of weight and has passed out several times when he stands up too quickly. He states he was in the hot tub today which she has been warned can increase his dizziness and make him pass out, when he stood up out of the hot tub he felt lightheaded dizzy and passed out. He is on Xarelto. Struck his head on the ground causing a laceration of the forehead. Also complaining of neck pain. No chest pain. No palpitations. No focal numbness or weakness. Review of Systems Constitutional: denies: Fever GI: denies: Vomiting Skin: denies: Rash Musculoskeletal: reports: Neck pain (Upper neck pain). denies: Back pain Neurologic: reports: Head injury. denies: Focal weakness, Numbness, Confused PD PAST MEDICAL HISTORY - Past Medical History Past Medical History: Yes Cardiovascular: Atrial fibrillation Respiratory: Sleep apnea, CPAP use Neuro: None Endocrine/Autoimmune: None GI: None : None HEENT: None Psych: None Musculoskeletal: None Derm: None - Past Surgical History Past Surgical History: Yes General: Other - Present Medications Home Medications: Ambulatory Orders Medication Instructions Recorded Confirmed buPROPion HCL [Bupropion Xl] 300 mg PO DAILY 05/12/14 01/19/24 Losartan [Cozaar] 50 mg PO BID 04/09/21 01/19/24 Rivaroxaban [Xarelto] 20 mg PO DAILY #30 tablet 04/09/21 01/19/24 Metoprolol Succinate [Toprol Xl] 25 mg PO BID 05/04/22 01/19/24 Amiodarone [Pacerone] 200 mg ORAL DAILY 01/19/24 01/19/24 Escitalopram Oxalate 10 mg PO DAILY 01/19/24 01/19/24 - Allergies Allergies/Adverse Reactions: Allergies Allergy/AdvReac Type Severity Reaction Status Date / Time brompheniramine maleate * Allergy Unknown Verified 01/19/24 11:58 [From Drixoral] dexbrompheniramine maleate * Allergy Unknown Verified 01/19/24 11:58 [From Drixoral] dofetilide Allergy Unknown Verified 01/19/24 11:58 pseudoephedrine HCl * Allergy Unknown Verified 01/19/24 11:58 [From Drixoral] pseudoephedrine sulfate * Allergy Unknown Verified 01/19/24 11:58 [From Drixoral] - Social History Does the pt smoke?: No Smoking Status: Never smoker Does the pt drink ETOH?: Yes Does the pt have substance abuse?: No - Immunizations Immunizations are current?: Yes - POLST Patient has POLST: No PD ED PE NORMAL - Vitals Vital signs reviewed: Yes - General General: Alert and oriented X 3, No acute distress - HEENT HEENT: PERRL, EOMI, Moist mucous membranes, Other (No scalp hematomas. Does have a laceration to the forehead. No palpable skull fractures. No facial bone tenderness. Teeth come together normally.) - Neck Neck: Other (Mild upper C-spine tenderness to palpation. No step-off or deformity.) - Cardiac Cardiac: RRR, Strong equal pulses - Respiratory Respiratory: No respiratory distress, Clear bilaterally - Abdomen Abdomen: Soft, Non tender, Non distended - Back Back: No spinal TTP - Derm Derm: Warm and dry - Extremities Extremities: Normal ROM s pain - Neuro Neuro: Alert and oriented X 3, paint booth operator 2-12 intact, No motor deficit, No sensory deficit, Normal speech Eye Opening: Spontaneous Motor: Obeys Commands Verbal: Oriented GCS Score: 15 - Psych Psych: Normal mood, Normal affect Results - Vitals Vitals: Vital Signs - 24 hr 01/19/24 01/19/24 01/19/24 11:58 12:27 12:35 Temperature 36.9 C Heart Rate 53 L 53 L Heart Rate [ 57 L Sitting] Heart Rate [ 63 Standing] Heart Rate [ 51 L Supine] Respiratory 18 16 Rate Blood Pressure 111/63 119/70 Blood Pressure 109/65 [Sitting] Blood Pressure 102/60 [Standing] Blood Pressure 117/62 [Supine] O2 Saturation 99 96 01/19/24 01/19/24 13:05 14:00 Temperature Heart Rate 51 L 117 H Heart Rate [ Sitting] Heart Rate [ Standing] Heart Rate [ Supine] Respiratory 16 16 Rate Blood Pressure 110/86 H 116/78 Blood Pressure [Sitting] Blood Pressure [Standing] Blood Pressure [Supine] O2 Saturation 95 98 Oxygen O2 Source Room air - EKG (time done) 1205 EKG releavant findings:: EKG personally interpreted by author of this note. Relevant findings are: Rate: Rate (enter#) (55) Rhythm: NSR [place]: Normal Intervals: Normal LA QRS: Normal Ischemia: Non specific changes - Labs Labs: Laboratory Tests 01/19/24 01/19/24 01/19/24 12:12 12:33 12:33 WBC 7.7 RBC 4.32 L Hgb 14.7 Hct 43.1 MCV 99.8 H MCH 34.0 H MCHC 34.1 RDW 13.3 Plt Count 212 MPV 10.2 Neut # (Auto) 6.0 Lymph # (Auto) 0.8 L [place] # (Auto) 0.7 Eos # (Auto) 0.1 Baso # (Auto) 0.0 Absolute Nucleated RBC 0.00 Nucleated RBC % 0.0 Sodium 136 Potassium 4.7 H Chloride 95 L Carbon Dioxide 31 Anion Gap 10.0 BUN 15 Creatinine 1.3 Estimated GFR (MDRD) 58 L Glucose 83 POC Whole Bld Glucose 88 Calcium 10.2 Magnesium 1.5 L Total Bilirubin 1.7 H AST 148 H ALT 119 H Alkaline Phosphatase 56 Total Protein 7.0 Albumin 4.6 Globulin 2.4 Albumin/Globulin Ratio 1.9 Lipase 38 - Rads (name of study) Head CT Relevant Findings:: Final report received, See rad report Cervical spine CT Relevant Findings:: Final report received, See rad report Procedures - Laceration (location) forehead Length in cm: 4 Wound type: Curved (V shaped), Into muscle, Clean Neurovascular status: Sensory intact, Motor intact, Vascular intact Anesthesia: Lidocaine 1% with epi Wound preparation: Irrigated copiously NS, Wound explored, To the base Skin layer closure: Interrupted, Size #-0 - enter number (4) Other: Patient tolerated well, No complications, Neurovascular intact, Dressing applied, Tetanus UTD PD Medical Decision Making - ED course Complexity details: reviewed results, re-evaluated patient, considered differential, d/w patient ED course: Patient was activated as a modified trauma, I saw the patient as soon as he was brought back to the emergency department. Laceration repaired. Tolerated well. No acute findings on head CT or cervical spine CT. No evidence of fracture or intracranial hemorrhage. Declines anything for pain here. Cervical collar was removed after negative CT. Full range of motion of the neck without pain. No focal neurological deficits. Tetanus up-to-date. Patient appears to have had a vasovagal syncopal event after standing up from a hot hot tub that he was in for 20 minutes. No evidence of arrhythmia. Recommend he follow-up with his PCP for further care. Warnings of infection and instructions on wound care given at bedside. Also counseled on how to minimize scarring. Patient on his incidental elevated liver function test. He does drink alcohol. Recommend that he follow-up with his doctor regarding this. No abdominal pain today. Patient counseled regarding signs and symptoms for which I believe and urgent re- evaluation would be necessary. Patient with good understanding of and agreement to plan and is comfortable going home at this time This document was made in part using voice recognition software. While efforts are made to proofread this document, sound alike and grammatical errors may occur. Departure - Departure Disposition: 01 Home, Self Care Clinical Impression: Vasovagal syncope, Elevated liver function tests Forehead laceration Qualifiers: Encounter type: initial encounter Qualified Code(s): S01.81XA - Laceration without foreign body of other part of head, initial encounter Condition: Good Instructions: ED Laceration Facial Sutr Tape, ED Syncope Vasovagal Follow-Up: Your,doctor in 1 week [Other] Comments: Your head CT and cervical spine CT do not show any acute abnormalities today. Your symptoms are consistent with what is known as vasovagal syncope, where your blood pressure drops when you stand. Please make sure you are drinking plenty of water at home. Your laceration was repaired with sutures today. These can be removed with your doctor in approximately 7 days. Please return if you notice redness, swelling or drainage from the wound. Please return for any other new or worrisome symptoms. Your liver function tests were also mildly elevated today, these can be rechecked with your doctor in 1 to 2 weeks. Forms: PCP List Discharge Date/Time: 01/19/24 14:06
[2024-01-19 12:40] LABS: BASOPHILS % (AUTO) 0.4 %; EOSINOPHILS # (AUTO) 0.1 10^3/uL (0.0-0.7); EOSINOPHILS % (AUTO) 1.7 %; HCT - HEMATOCRIT 43.1 % (42.0-52.0); HGB - HEMOGLOBIN 14.7 g/dL (14.0-18.0); LYMPHOCYTES # (AUTO) 0.8 10^3/uL (1.5-3.5); LYMPHOCYTES % (AUTO) 10.6 %; MEAN CORPUSCULAR HGB CONC 34.1 g/dL (32.0-36.0); MEAN CORPUSCULAR VOLUME 99.8 fL (80.0-94.0); MEAN PLATELET VOLUME 10.2 fL (7.4-11.4); MONOCYTES # (AUTO) 0.7 10^3/uL (0.0-1.0); MONOCYTES % (AUTO) 9.2 %; NEUTROPHILS % (AUTO) 77.7 %; PLT - PLATELET COUNT 212 10^3/uL (130-450); RED BLOOD COUNT 4.32 10^6/uL (4.70-6.10); RED CELL DISTRIBUTION WIDTH 13.3 % (12.0-15.0); WHITE BLOOD COUNT 7.7 x10^3/uL (4.8-10.8)
[2024-01-19] MEDS: SODIUM CHLORIDE 0.9% 1,000 ML IV STA (12:49)
[2024-01-19 12:54] LABS: ALBUMIN 4.6 g/dL (3.2-5.5); ALBUMIN/GLOBULIN RATIO 1.9 (1.0-2.2); BILIRUBIN,TOTAL 1.7 mg/dL (0.2-1.0); CALCIUM 10.2 mg/dL (8.5-10.3); CREATININE 1.3 mg/dL (0.6-1.3); MAGNESIUM 1.5 mg/dL (1.7-2.3); POTASSIUM 4.7 mmol/L (3.5-4.5)
--- NOTE | 2024-01-19 13:28 | CT Report ---
PROCEDURE: Head WO INDICATIONS: fall, head/neck pain, on xarelto TECHNIQUE: Noncontrast 4.5 mm thick angled axial sections acquired from the foramen magnum to the vertex. For r adiation dose reduction, the following was used: automated exposure control, adjustment of mA and/or kV according to patient size. COMPARISON: CT cervical spine 01/18/2023 FINDINGS: Image quality: Excellent. CSF spaces: Basal cisterns are patent. No extra-axial fluid collections. Ventricles are normal in size and shape. Brain: No midline shift. No intracranial masses or hemorrhage. [place]-white matter interface is norm al. Skull and face: Calvarium and visualized facial bones are intact, without suspicious lesions. Sinuses: Visualized sinuses and mastoids are clear. IMPRESSION: No acute intracranial pathology. Reviewed by: Krystina Yusuf MD on 01/19/2024 1:26 PM PDT Approved by: Krystnia Yusuf MD on 01/19/2024 1:26 PM PDT Station ID: [id number]
--- NOTE | 2024-01-19 13:29 | CT Report ---
PROCEDURE: Cervical Spine WO INDICATIONS: fall, head/neck pain, on xarelto TECHNIQUE: Noncontrast 3 mm thick sections acquired from the skull base to the T4 level. Sagittal and coronal r eformats were then constructed. For radiation dose reduction, the following was used: automated exp osure control, adjustment of mA and/or kV according to patient size. COMPARISON: None. FINDINGS: Image quality: Excellent. Bones: No fractures or dislocations. Visualized superior ribs are intact. Mild multilevel degenera tive changes. Soft tissues: Prevertebral soft tissues are normal in thickness. No paravertebral hematomas. No ap ical pneumothoraces. IMPRESSION: No visualized fracture. Reviewed by: Krystina Yusuf MD on 01/19/2024 1:27 PM PDT Approved by: Krystina Yusuf MD on 01/19/2024 1:27 PM PDT Station ID: [id number]
[2024-01-19] MEDS ORDERED: BACITRACIN ZINC OINT 1 PACKET TOP STA (13:50)
[2024-01-19] MEDS: LIDOCAINE 1%-EPI 1:100000 20 ML MDV SUBQ STA (14:03)
[2024-01-19 14:09] VITALS: BP 116/78; O2SAT 98
== END 2024-01-19 14:06 | disposition home or self-care (01) ==
LOC: ED 11:32
DX: S01.81XA Laceration without foreign body of other part of head, initial encounter (principal); W19.XXXA Unspecified fall, initial encounter; R55 Syncope and collapse; I48.91 Unspecified atrial fibrillation; R79.89 Other specified abnormal findings of blood chemistry; R94.31 Abnormal electrocardiogram [ECG] [EKG]; Z79.01 Long term (current) use of anticoagulants; Z98.84 Bariatric surgery status
CPT/HCPCS: 12002; 36415; 80053; 83690; 83735; 84484; 85025; 93005; 99284